=== PATIENT | female | born 1980 | race Caucasian/White ===

== ENCOUNTER → 2016-06-13 | Outpatient (CLI) | payer BC, OTHER ==
[2016-06-13 08:05] LABS: HCG, SERUM QUANTITATIVE < 1.0 MIU/ML
[2016-06-13 08:28] LABS: ESTRADIOL 20.6 PG/ML; PROGESTERONE < 0.2 NG/ML
--- NOTE | 2016-06-15 14:35 | REP ---
Transvaginal pelvic sonography: History: Infertility. Follicle ultrasound. Findings: Uterine dimensions are 7.1 x 4.5 x 3.7 cm. Endometrial echo is 0.5 cm thick and centrally placed. No free fluid is seen. The overall dimensions of the right ovary today are 2.3 x 1.5 x 1.6 cm. There are no follicles over a centimeter in the right ovary. There are 12 follicles in the right ovary ranging in size from 0.2-0.7 cm. The left ovary today has overall dimensions of 2.5 x 2.1 x 1.9 cm. There are no follicles over a centimeter in the left ovary. There are 10 follicles in the left ovary ranging in size of 0.2-0.9 cm. Impression: Follicle study as above. Signed by Pardeep Barroso MD 06/13/2016 10:12 A
== END ==
LOC: M LAB 07:17
PROVIDERS: ATTEND Obstetrics & Gynecology Reproductive Endocrinology
DX: Z31.49 Encounter for other procreative investigation and testing (principal); N83.02 Follicular cyst of left ovary

== ENCOUNTER → 2016-06-19 | Outpatient (CLI) | payer BC, OTHER ==
--- NOTE | 2016-06-19 09:16 | REP ---
Transvaginal pelvic ultrasound 06/19/2016 Indication: Infertility Comparison: Transvaginal pelvic ultrasound 06/13/2016 Findings: Uterus measures 7.4 x 3.7 x 3.9 cm. Endometrium is 10.1 mm in thickness and smooth. Right ovary measures 2.4 x 1.0 x 2.5 cm. There are 5 sub cm right ovarian follicles ranging from 1.9-3.7 mm size. Left ovary measures 2.8 x 1.2 x 2.3 cm and contains 7 sub cm follicles ranging from 2.6-7.1 mm size. There is no free fluid in cul-de-sac Impression 1. Endometrium is 10.1 mm in thickness and smooth. 2. No dominant follicles greater than or equal to 10 mm size bilaterally. 3. 5 sub cm right and 7 sub cm left ovarian follicles. 4. No free fluid in cul-de-sac Signed by Aleida Bob MD 06/19/2016 09:08 A
[2016-06-19 09:48] LABS: PROGESTERONE < 0.2 NG/ML
[2016-06-19 09:49] LABS: ESTRADIOL 308.3 PG/ML
== END ==
LOC: M RAD 08:00
PROVIDERS: ATTEND Obstetrics & Gynecology Reproductive Endocrinology
DX: Z31.49 Encounter for other procreative investigation and testing (principal); N83.01 Follicular cyst of right ovary; N83.02 Follicular cyst of left ovary

== ENCOUNTER → 2016-06-23 | Outpatient (CLI) | payer BC, OTHER ==
[2016-06-23 11:40] LABS: MEAN CORPUSCULAR HEMOGLOBIN 29.7 pg (27.0-33.0); MEAN CORPUSCULAR HGB CONC 31.9 g/dl (32.0-36.5); MEAN CORPUSCULAR VOLUME 93.1 fl (80.0-96.0); RED CELL DISTRIBUTION WIDTH 13.4 % (11.5-14.5)
== END ==
LOC: M LAB 11:06
PROVIDERS: ATTEND Obstetrics & Gynecology Reproductive Endocrinology
DX: Z31.49 Encounter for other procreative investigation and testing (principal); Z31.41 Encounter for fertility testing; N91.2 Amenorrhea, unspecified

== ENCOUNTER → 2016-06-26 | Outpatient (CLI) | payer BC, OTHER ==
[2016-06-26 14:08] LABS: MEAN CORPUSCULAR HGB CONC 33.3 g/dl (32.0-36.5); RED CELL DISTRIBUTION WIDTH 13.3 % (11.5-14.5)
[2016-06-26 14:18] LABS: WHITE BLOOD COUNT 44.2 K/mm3 (4.0-10.0)
== END ==
LOC: M LAB 13:01
PROVIDERS: ATTEND Obstetrics & Gynecology Reproductive Endocrinology
DX: Z31.49 Encounter for other procreative investigation and testing (principal)

== ENCOUNTER → 2016-07-01 | Outpatient (CLI) | payer BC, OTHER ==
--- NOTE | 2016-07-01 08:43 | REP ---
Transvaginal pelvic sonography: History: Infertility. Follicle ultrasound. Findings: Uterine dimensions are 7.6 x 3.7 x 4.3 cm endometrial stripe 0.7 cm in greatest thickness. The right ovary measures 2.1 x 1.2 x 1.3 cm today. There are no follicles over a centimeter. There are nine follicles in the right ovary ranging from 0.3-0.4 cm. The overall dimensions of the left ovary are 2.8 x 1.7 x 2.1 cm. There are no follicles in the left ovary larger than a centimeter. There are 11 follicles in the left ovary measuring 0.3-0.6 cm. No free fluid or significant ovarian lesion. Impression: Follicle study as above. No abnormality. Signed by Pardeep Barroso MD 07/01/2016 08:35 A
== END ==
LOC: M RAD 07:57
PROVIDERS: ATTEND Obstetrics & Gynecology Reproductive Endocrinology
DX: N97.8 Female infertility of other origin (principal); N83.01 Follicular cyst of right ovary; N83.02 Follicular cyst of left ovary

== ENCOUNTER → 2016-07-17 | Outpatient (CLI) | payer BC, OTHER ==
[2016-07-17 11:23] LABS: PROGESTERONE 21.5 NG/ML
== END ==
LOC: M LAB 10:29
PROVIDERS: ATTEND Obstetrics & Gynecology Reproductive Endocrinology
DX: Z32.00 Encounter for pregnancy test, result unknown (principal); Z36 Encounter for antenatal screening of mother

== ENCOUNTER → 2017-01-11 | Outpatient (CLI) | payer BC, OTHER ==
--- NOTE | 2017-01-11 16:14 | REP ---
Renal ultrasound for bilateral flank discomfort to: The kidneys are normal size. The right kidney measures 10.4 x 5.2 x 5.3 cm. Left kidney measures 10.0 x 5.0 x 5.4 cm. Renal cortical echogenicity is normal bilaterally. There is mild right hydronephrosis, however this could be secondary to the markedly distended urinary bladder. The bladder contains 538 ml fluid. There is no hydronephrosis on the left. There are no renal calculi, cysts or masses on the right or the left. With color Doppler assessment there are ureteral jets into the urinary bladder bilaterally indicating there is no ureteral obstruction on the right on the left. The bladder volume is five. 538 ml. Impression: Mild right hydronephrosis, possibly artifact from the distended urinary bladder. Otherwise, essentially negative renal ultrasound. There are bilateral ureteral jets into the urinary bladder. Signed by Michael Montes De Oca MD 01/11/2017 04:05 P
== END ==
LOC: M LRY 14:11
PROVIDERS: ATTEND Family Medicine
DX: R10.10 Upper abdominal pain, unspecified (principal); N13.30 Unspecified hydronephrosis

== ENCOUNTER → 2018-08-17 | Outpatient (CLI) | payer BC ==
[2018-08-17 13:20] LABS: BASO # 0.1 10^3/uL (0.0-0.2); BASO % 1.3 % (0.0-1.0); EOS # 0.3 10^3/uL (0.0-0.50); EOS % 5.5 % (0.0-3.0); HEMATOCRIT 41.1 % (36.0-47.0); HEMOGLOBIN 13.6 g/dl (12.0-15.5); LYMPH % 32.8 % (24.0-44.0); MEAN CORPUSCULAR HEMOGLOBIN 30.3 pg (27.0-33.0); MEAN CORPUSCULAR HGB CONC 33.1 g/dl (32.0-36.5); MEAN CORPUSCULAR VOLUME 91.5 fl (80.0-96.0); MONO # 0.5 10^3/uL (0.0-0.8); MONO % 7.3 % (0.0-5.0); NEUTROPHILS # 3.3 10^3/uL (1.8-7.7); NEUTROPHILS % 52.9 % (36.0-66.0); PLATELET COUNT, AUTOMATED 330 10^3/uL (150-450); RED BLOOD COUNT 4.49 10^6/uL (4.00-5.40); WHITE BLOOD COUNT 6.2 10^3/uL (4.0-10.0)
[2018-08-17 13:45] LABS: ERYTHROCYTE SEDIMENTATION RATE 9 mm/hr (0-20)
[2018-08-17 13:52] LABS: ALBUMIN 4.2 GM/DL (3.2-5.2); ALT/SGPT 20 U/L (12-78); BILIRUBIN,TOTAL 0.9 MG/DL (0.2-1.0); BLOOD UREA NITROGEN 12 MG/DL (7-18); CALCIUM LEVEL 8.6 MG/DL (8.5-10.1); CARBON DIOXIDE LEVEL 27 MEQ/L (21-32); CHLORIDE LEVEL 105 MEQ/L (98-107); FREE T4 1.44 NG/DL (0.76-1.46); GLOMERULAR FILTRATION RATE > 60.0 (>58); GLUCOSE, FASTING 111 MG/DL (70-100); POTASSIUM SERUM 4.3 MEQ/L (3.5-5.1); SODIUM LEVEL 140 MEQ/L (136-145); THYROGLOBULIN ANTIBODY 449.7 U/ML (<60.0); THYROID PEROXIDASE ANTIBODY > 1300.0 U/ML (<60.0); TOTAL PROTEIN 7.5 GM/DL (6.4-8.2)
== END ==
LOC: M SMT 11:38
PROVIDERS: ATTEND Family Medicine
DX: J02.9 Acute pharyngitis, unspecified (principal); R60.0 Localized edema; E06.3 Autoimmune thyroiditis; R53.83 Other fatigue

== ENCOUNTER → 2018-12-20 | Outpatient (CLI) | payer BC, OTHER ==
[2018-12-20 10:34] LABS: FREE T4 1.12 NG/DL (0.76-1.46); THYROID STIMULATING HORMONE 8.74 uIU/ML (0.358-3.740)
== END ==
LOC: M SMT 08:09
PROVIDERS: ATTEND Physician Assistant
DX: G47.33 Obstructive sleep apnea (adult) (pediatric) (principal)

== ENCOUNTER → 2019-01-31 | Outpatient (CLI) | payer BC ==
[2019-01-31 17:28] LABS: FREE T4 1.63 NG/DL (0.76-1.46); THYROID STIMULATING HORMONE 0.311 uIU/ML (0.358-3.740)
== END ==
LOC: M SMT 13:52
PROVIDERS: ATTEND Family Medicine
DX: E06.3 Autoimmune thyroiditis (principal)

== ENCOUNTER → 2019-06-12 | Outpatient (CLI) | payer OTHER ==
[2019-06-12 18:47] LABS: FREE T4 1.43 NG/DL (0.76-1.46); THYROID STIMULATING HORMONE 1.18 uIU/ML (0.358-3.740)
== END ==
LOC: M PLALAB 14:08
PROVIDERS: ATTEND Family Medicine
DX: E06.3 Autoimmune thyroiditis (principal)

== ENCOUNTER → 2019-07-27 | Outpatient (CLI) | payer OTHER ==
[2019-07-27 18:10] LABS: BASO # 0.1 10^3/uL (0.0-0.2); BASO % 1.2 % (0.0-1.0); EOS # 0.3 10^3/uL (0.0-0.5); HEMATOCRIT 39.9 % (36.0-47.0); HEMOGLOBIN 12.9 g/dl (12.0-15.5); LYMPH # 1.6 10^3/uL (1.5-5.0); LYMPH % 23.8 % (24.0-44.0); MEAN CORPUSCULAR HEMOGLOBIN 30.2 pg (27.0-33.0); MEAN CORPUSCULAR HGB CONC 32.3 g/dl (32.0-36.5); MEAN CORPUSCULAR VOLUME 93.4 fl (80.0-96.0); MONO # 0.4 10^3/uL (0.0-0.8); MONO % 6.6 % (0.0-5.0); NEUTROPHILS # 4.3 10^3/uL (1.5-8.5); NEUTROPHILS % 64.3 % (36.0-66.0); PLATELET COUNT, AUTOMATED 256 10^3/uL (150-450); RED BLOOD COUNT 4.27 10^6/uL (4.00-5.40); WHITE BLOOD COUNT 6.7 10^3/uL (4.0-10.0)
[2019-07-27 18:28] LABS: ALBUMIN 4.1 GM/DL (3.2-5.2); ALT/SGPT 17 U/L (12-78); BLOOD UREA NITROGEN 10 MG/DL (7-18); CARBON DIOXIDE LEVEL 29 MEQ/L (21-32); CHLORIDE LEVEL 106 MEQ/L (98-107); CHOLESTEROL LEVEL 202 MG/DL (<200); CHOLESTEROL RISK RATIO 3.107 (<5); CREATININE FOR GFR 0.78 MG/DL (0.55-1.30); GLOMERULAR FILTRATION RATE > 60.0 (>58); GLUCOSE, FASTING 128 MG/DL (70-100); HDL CHOLESTEROL 65 MG/DL (>40); LDL CHOLESTEROL 117 MG/DL (<100); NON-HDL-C 137 MG/DL; POTASSIUM SERUM 3.8 MEQ/L (3.5-5.1); SODIUM LEVEL 140 MEQ/L (136-145); TRIGLYCERIDES LEVEL 101 MG/DL (<150); TROPONIN I < 0.02 NG/ML (< 0.10)
== END ==
LOC: M PLALAB 14:14
PROVIDERS: ATTEND Physician Assistant
DX: R07.89 Other chest pain (principal)